=== PATIENT | male | born 1990 | race Caucasian/White ===

== ENCOUNTER 2017-06-19 15:49 | Emergency (ER) | payer MEDICAID ==
--- NOTE | 2017-06-19 16:08 | ED Physician Chart ---
ED Chief Complaint/HPI - Patient Information Date Seen:: 06/19/17 Time Seen:: 16:00 Chief Complaint:: scalp wound History of Present Illness:: location; head quality: scalp wound severity: mild duration: less than one hour context: pt was seen in [employer] parking lot, found with wound on posterior scalp. bystander called 911. medics arriving on scene found patient awake, alert, stable vital signs. noted wound at posterior scalp and so decided to transport patient to ER for further eval. on arrival pt is awake alert. speaks full sentences. calling staff names, using swear words. mod factors: none assoc s/s: none hx from medic and pt Allergies:: Allergies Allergy/AdvReac Type Severity Reaction Status Date / Time No Known Allergies Allergy Verified 08/30/16 23:56 Historian:: Patient, EMS Review:: Nurse's Note Reviewed ED Review of Systems - Review of Systems General/Constitutional: No fever Cardio Vascular: No chest pain Pulmonary: No SOB ED Past Medical History - Past Medical History Past Medical History: No significant medical hx Family History: None Social History: Non Smoker, Alcohol, No Drug Use, Single Surgical History: None Psychiatricy History: None Medication: None Family Medical History - Family Member Mother History Unknown: Yes ED Physical Exam - Physical Examination General/Constitutional: Awake, Well-developed, well-nourished, Alert, No distress, GCS 15, Non-toxic appearing, Ambulatory (pts breaths smells faintly of etoh, speech is clear, pt yells out derogatory comments at ER staff. ) Head: Atraumatic (scalp exam: intact scalp, anteriorly, at posterior scalp 2.5 cm superficial scalp laceration which does not open when traction applied to wound edges. no deep structures visible.) Eyes: PERRL Skin: Nl inspection Neck: Nontender, Full ROM w/o pain Neuro/Psych: Alert/oriented (alert, awake, clear speech, oriented to name, situation - does not answer other questions, begins to yell at staff. ) Misc: Normal back, No paraspinal tenderness ED Assessment - Assessment General Assessment: medical decision making: stable patient with small superficial laceration at posterior scalp during physician examination patient is informed that his wound is superficial and that it would need a few ganesh. pt stated he did not want ganesh and wanted to leave. pt began to say loud derogatory statements towards staff members and state that he did not want to receive any ganesh. pt decided to sign out AMA. pt is awake, alert, clear speech, faint smell of etoh on breath. normal gait, normal balance. pt is not trying to purposefully harm himself or others. pt is not to be held against his will. pt to sign out AMA
== END 2017-06-19 16:00 | disposition left against medical advice (07) ==
LOC: ER 15:49
DX: S01.01XA Laceration without foreign body of scalp, initial encounter (principal); W45.8XXA Other foreign body or object entering through skin, initial encounter; Y93.89 Activity, other specified; Y92.89 Other specified places as the place of occurrence of the external cause; Y99.8 Other external cause status
CPT/HCPCS: Z7502